=== PATIENT | female | born 1985 | race Caucasian/White ===

== ENCOUNTER → 2017-03-26 | Outpatient (CLI) | payer OTHER | LOC: STAR 08:18 | PROVIDERS: ATTEND Specialist | DX: Z02.9 Encounter for administrative examinations, unspecified (principal) ==

== ENCOUNTER 2017-04-02 11:36 | Observation (INO) | payer OTHER ==
[~2017-04-02] VITALS: Ht 172.7 cm; Wt 95.9 kg
[2017-04-02] MEDS ORDERED: LACTATED RINGERS 1,000 ML IV SCH (12:16)
[2017-04-02] MEDS ORDERED: BUPIVACAINE/PF 0.25% ONE (12:17)
[2017-04-02] MEDS ORDERED: EPINEPHRINE 1 MG/ML, 1ML ONE ×2 (12:18→15:39)
[2017-04-02] MEDS ORDERED: FLUORESCEIN SODIUM 500 MG/5 ML ONE (12:19)
[2017-04-02] MEDS ORDERED: LIDOCAINE-MPF 1%, 2ML ONE (12:20)
[2017-04-02] MEDS ORDERED: METHYLENE BLUE 10 MG/ML 10ML ONE (12:27)
[2017-04-02] MEDS ORDERED: LIDOCAINE 1%, 2ML SQ PRN (12:30)
[2017-04-02 12:56] LABS: HCG UR SG 1.045 (1.003-1.030)
[2017-04-02] MEDS ORDERED: FENTANYL PF 250 MCG/5ML ONE (13:18)
[2017-04-02] MEDS ORDERED: MIDAZOLAM 1 MG/ML, 2ML ONE (13:18)
[2017-04-02] MEDS ORDERED: GABAPENTIN 300 MG CAPSULE ONE (13:24)
[2017-04-02] MEDS ORDERED: ACETAMINOPHEN 500 MG TABLET ONE (13:25)
[2017-04-02] MEDS ORDERED: ACETAMINOPHEN 500 MG TABLET PO ONE (13:30)
[2017-04-02] MEDS ORDERED: GABAPENTIN 300 MG CAPSULE PO ONE (13:30)
[2017-04-02] MEDS ORDERED: KETAMINE 10 MG/ML, 20ML ONE (14:06)
[2017-04-02] MEDS ORDERED: BUPIVACAINE/PF 0.25% INFIL ONE (14:27)
[2017-04-02] MEDS ORDERED: DIAZEPAM 5 MG/ML, 2ML IVPush PRN (15:00)
[2017-04-02] MEDS ORDERED: HYDROmorphone 1 MG/ML, 1ML IV PRN (15:00)
[2017-04-02] MEDS ORDERED: ALBUTEROL/IPRATROPIUM 2.5MG/0.5MG, 3 ML NPPB PRN (15:00)
[2017-04-02] MEDS ORDERED: PROMETHAZINE 25 MG/ML, 1ML IV PRN (15:00)
[2017-04-02] MEDS ORDERED: FENTANYL PF 100 MCG/2ML IV PRN (15:00)
[2017-04-02] MEDS ORDERED: hydrALAzine 20 MG/ML, 1ML IV PRN (15:00)
[2017-04-02] MEDS ORDERED: ONDANSETRON 2MG/ML, 2ML IVPush PRN (15:00)
[2017-04-02] MEDS ORDERED: MEPERIDINE/PF 25MG/0.5ML IVPush PRN (15:00)
[2017-04-02] MEDS ORDERED: LABETALOL 5MG/ML, 20ML IV PRN (15:00)
[2017-04-02] MEDS ORDERED: OXYcodone 5 MG/5 ML ORAL.SOL UDC PO PRN (15:00)
[2017-04-02] MEDS ORDERED: MIDAZOLAM 1 MG/ML, 2ML IV PRN (15:00)
[2017-04-02] MEDS ORDERED: PROMETHAZINE 12.5 MG SUPP PR PRN (15:00)
[2017-04-02] MEDS ORDERED: KETOROLAC 30 MG/1 ML ONE (15:39)
[2017-04-02] MEDS ORDERED: LIDOCAINE-MPF 2% ,5ML ONE (15:39)
[2017-04-02] MEDS ORDERED: SUCCINYLCHOLINE 20 MG/ML, 10ML ONE (15:39)
[2017-04-02] MEDS ORDERED: ROCURONIUM 10 MG/ML,10ML ONE (15:39)
[2017-04-02] MEDS ORDERED: NEOSTIGMINE 1 MG/ML, 10ML ONE (15:39)
[2017-04-02] MEDS ORDERED: BUPIVACAINE/PF 0.5% ONE (15:39)
[2017-04-02] MEDS ORDERED: PROPOFOL 10 MG/ML, 20ML ONE (15:39)
[2017-04-02] MEDS ORDERED: DEXAMETHASONE 4 MG/ML, 1ML ONE (15:39)
[2017-04-02] MEDS ORDERED: CEFAZOLIN 1,000 MG ONE (15:39)
[2017-04-02] MEDS ORDERED: ONDANSETRON 2MG/ML, 2ML ONE ×2 (15:39→17:02)
[2017-04-02] MEDS ORDERED: GLYCOPYRROLATE 0.2MG/1ML, 5ML ONE (15:39)
[2017-04-02] MEDS ORDERED: HYDROmorphone 2 MG/ML, 1ML ONE (15:47)
[2017-04-02] MEDS ORDERED: OXYcodone 5 MG/5 ML ORAL.SOL UDC ONE (16:41)
[2017-04-02] MEDS ORDERED: ONDANSETRON 2MG/ML, 2ML IV PRN (18:30)
[2017-04-02] MEDS ORDERED: HYDROmorphone 2 MG/ML, 1ML IV PRN (18:30)
[2017-04-02 20:00] VITALS: BP 108/69
[2017-04-02] MEDS: KETOROLAC 30 MG/1 ML IV SCH (21:46)
[2017-04-02 23:53] VITALS: BP 104/61
[2017-04-03] MEDS: D5%-LACTATED RINGERS 1,000 ML IV SCH ×4 (01:38→10:23)
[2017-04-03] MEDS: KETOROLAC 30 MG/1 ML IV SCH ×2 (03:21→10:29)
[2017-04-03 04:00] VITALS: BP 102/59
[2017-04-03 07:05] VITALS: BP 98/52
[2017-04-03] MEDS: OXYcodone 5 MG/5 ML ORAL.SOL UDC PO PRN ×2 (07:43→11:10)
[2017-04-03] MEDS ORDERED: OXYC5CAP2 PO (13:35)
[2017-04-03] MEDS ORDERED: IBUP200T49 PO (13:36)
[2017-04-03] MEDS ORDERED: ONDA4TAB7 PO (13:37)
[2017-04-08] MEDS ORDERED: IBUPROFEN 600 MG TABLET PO SCH (06:00)
== END 2017-04-03 13:55 | disposition home or self-care (01) ==
LOC: OUT 11:36 → MERGE 13:00 → 4NOR 17:33 → OUT 18:43 → 4NOR 18:44 → DCLOUNGE 04-03 13:30
PROVIDERS: ADMIT Specialist; ATTEND Specialist
DX: N80.1 Endometriosis of ovary (principal); N94.10 Unspecified dyspareunia; Z83.3 Family history of diabetes mellitus
CPT/HCPCS: 36415; 58662; 81025; 85014; 85018; 88305; 96374; 96376; G0378; J0171; J0330; J0690; J1100; J1170; J1885; J2250; J2405; J2704; J2710; J3010; J3490; J7120; Q9968; J7121

== ENCOUNTER 2019-02-01 18:06 | Emergency (ER) | payer OTHER ==
[~2019-02-01] VITALS: Ht 172.7 cm; Wt 96.9 kg
[~2019-02-01 18:06] MED LIST: IBUP200T49 PO; ONDA4TAB7 PO; OXYC5CAP2 PO
[2019-02-01] MEDS ORDERED: ACETAMINOPHEN 325 MG TABLET PO ONE (19:00)
[2019-02-01] MEDS ORDERED: ONDANSETRON ODT 4 MG PO ONE (19:00)
[2019-02-01] MEDS ORDERED: ACETAMINOPHEN 325 MG TABLET ONE (19:11)
[2019-02-01] MEDS ORDERED: ONDANSETRON ODT 4 MG ONE (19:11)
[2019-02-01 19:16] LABS: BASOPHILS % (AUTO) 0 % (0-1); EOSINOPHILS # (AUTO) 0.14 x10^3/uL (0-0.4); EOSINOPHILS % (AUTO) 2 % (1-7); LYMPHOCYTES # (AUTO) 1.07 x10^3/uL (1-3.4); LYMPHOCYTES % (AUTO) 13 % (22-44); MD NO; MEAN CORPUSCULAR HEMOGLOBIN 28.1 pg (27.0-34.8); MEAN CORPUSCULAR VOLUME 85.4 fL (80-100); MEAN PLATELET VOLUME 7.8 fL (7.4-10.4); MONOCYTES # (AUTO) 0.37 x10^3/uL (0.2-0.8); MONOCYTES % (AUTO) 5 % (2-9); NEUTROPHILS % (AUTO) 81 % (42-75); PLATELET COUNT 345 x10^3/uL (130-400)
--- NOTE | 2019-02-01 19:19 | NUR ---
Pt in imaging at this time.
[2019-02-01 19:29] LABS: ALANINE AMINOTRANSFERASE 28 U/L (12-78); ALBUMIN 3.8 g/dL (3.4-5.0); ANION GAP 7 mmol/L (5-15); CALCIUM 8.7 mg/dL (8.5-10.1); CHLORIDE 109 mmol/L (98-107); CREATININE 0.88 mg/dL (0.55-1.02)
[2019-02-01 19:32] VITALS: BP 135/95
--- NOTE | 2019-02-01 19:32 | NUR ---
Us at bedside.
[2019-02-01 19:33] LABS: ALKALINE PHOSPHATASE 66 U/L (45-117); BILIRUBIN,TOTAL 0.4 mg/dL (0.2-1.0); TOTAL PROTEIN 7.6 g/dL (6.4-8.2)
[2019-02-01] MEDS ORDERED: MAALOX/HYOSCYAMINE/LIDOCAINE 45 ML BTL ONE (19:53)
[2019-02-01] MEDS ORDERED: MAALOX/HYOSCYAMINE/LIDOCAINE 45 ML BTL PO ONE (20:00)
--- NOTE | 2019-02-01 20:20 | NUR ---
Pt states decrease in pain after pain medications.
[2019-02-01 20:24] LABS: MICROSCOPIC NOT IND
[2019-02-01 20:28] LABS: CULTURE INDICATED? NO
--- NOTE | 2019-02-01 20:41 | NUR ---
All results back. Pt up for rechceck.
== END 2019-02-01 21:33 | disposition home or self-care (01) ==
LOC: ED 20:34
DX: R10.13 Epigastric pain (principal); R07.1 Chest pain on breathing; R06.00 Dyspnea, unspecified; R11.0 Nausea
CPT/HCPCS: 36415; 71045; 76700; 80053; 81003; 83690; 84703; 85025; 85379; 93005; 99284; Q0162